=== PATIENT | male | born 1990 | race African-American/Black ===

== ENCOUNTER 2017-02-10 02:10 | Emergency (ER) | payer OTHER ==
[~2017-02-10] VITALS: Ht 167.6 cm; Wt 81.5 kg
[2017-02-10] MEDS ORDERED: AZITHROMYCIN 500 MG TABLET PO ONE (03:45)
[2017-02-10] MEDS ORDERED: LIDOCAINE HCL 1% 20ML VIAL (Pyxis) INJ MC ONE (03:45)
[2017-02-10] MEDS ORDERED: CEFTRIAXONE SODIUM 250 MG/VIAL IM ONE (03:45)
[2017-02-10 04:22] LABS: CLARITY URINE CLEAR (CLEAR); COLOR URINE YELLOW (YELLOW); GLUCOSE URINE NEGATIVE (NEGATIVE); KETONES URINE NEGATIVE (NEGATIVE); LEUKOCYTE ESTERASE URINE NEGATIVE (NEGATIVE); NITRITE URINE NEGATIVE (NEGATIVE); OCCULT BLOOD URINE TRACE (NEGATIVE); PROTEIN URINE NEGATIVE (NEGATIVE); SPECIFIC GRAVITY URINE 1.008 (1.005-1.030); UROBILINOGEN URINE 0.2 E.U./dL (0.2-1.0)
[2017-02-10 04:40] VITALS: BP 119/78
== END 2017-02-10 04:40 | disposition home or self-care (01) ==
LOC: ER 02:10
DX: Z20.2 Contact with and (suspected) exposure to infections with a predominantly sexual mode of transmission (principal)
CPT/HCPCS: 81001; 96372; 99283; J0696; J3490; Z7610

== ENCOUNTER 2017-04-27 09:54 | Emergency (ER) | payer OTHER ==
[~2017-04-27] VITALS: Ht 167.6 cm; Wt 82.0 kg
[2017-04-27 10:18] VITALS: BP 132/88
== END 2017-04-27 13:34 | disposition left against medical advice (07) ==
LOC: ER 11:30
DX: Z53.21 Procedure and treatment not carried out due to patient leaving prior to being seen by health care provider (principal)

== ENCOUNTER 2017-08-27 02:13 | Emergency (ER) | payer OTHER ==
[~2017-08-27] VITALS: Ht 167.6 cm; Wt 89.0 kg
[2017-08-27] MEDS ORDERED: FLUORESCEIN SODIUM 1MG/STRIP OP ONE (03:15)
[2017-08-27] MEDS ORDERED: TETRACAINE 0.5% OPHTH DROPS 4ML OP ONE (03:15)
[2017-08-27 04:15] VITALS: BP 128/79
== END 2017-08-27 04:25 | disposition home or self-care (01) ==
LOC: ER 02:13
DX: H10.89 Other conjunctivitis (principal); J45.909 Unspecified asthma, uncomplicated; F12.10 Cannabis abuse, uncomplicated
CPT/HCPCS: 99283

== ENCOUNTER 2021-11-02 18:21 | Emergency (ER) | payer OTHER ==
[~2021-11-02] VITALS: Ht 167.6 cm; Wt 91.0 kg
[2021-11-02 18:31] VITALS: BP 138/84
[2021-11-02] MEDS ORDERED: ABAC1TAB14 PO (18:36)
[2021-11-02 22:41] LABS: BASOPHILS % 0.2 % (0.0-2.0); EOSINOPHILS % 1.3 % (0.0-5.0); HEMATOCRIT. 43.9 % (42.0-52.0); HEMOGLOBIN. 14.5 g/dL (14.0-18.0); LYMPHOCYTES % 24.8 % (20.0-50.0); MEAN CORPUSCULAR HEMOGLOBIN 27.9 pg (28.0-32.0); MEAN CORPUSCULAR VOLUME 84.8 fL (80.0-94.0); MEAN PLATELET VOLUME 8.5 fl (7.4-10.4); MONOCYTES % 14.3 % (2.0-8.0); NEUTROPHILS % 59.4 % (40.0-76.0); PLATELET 145 x1000/uL (130-400); RED BLOOD CELL COUNT 5.17 mill/uL (4.7-6.1); RED CELL DISTRIBUTION WIDTH 14.5 % (11.6-14.6)
[2021-11-02 22:48] LABS: CHLORIDE 104 mEq/L (98-107)
== END 2021-11-03 04:00 | disposition left against medical advice (07) ==
LOC: ER 18:21
DX: R51.9 Headache, unspecified (principal); R50.9 Fever, unspecified; R05.9 Cough, unspecified; J45.909 Unspecified asthma, uncomplicated; Z20.822 Contact with and (suspected) exposure to COVID-19
CPT/HCPCS: 36415; 71045; 80053; 85025; 87426; 99284; C9803

== ENCOUNTER 2021-12-31 09:38 | Emergency (ER) | payer OTHER ==
[~2021-12-31] VITALS: Ht 170.2 cm; Wt 87.0 kg
[~2021-12-31 09:38] MED LIST: ABAC1TAB14 PO
[2021-12-31] MEDS ORDERED: ACETAMINOPHEN 325MG TABLET PO STA (10:23)
[2021-12-31] MEDS ORDERED: SODIUM CHLORIDE 0.9% 1,000 ML IV ONE (10:30)
[2021-12-31] MEDS ORDERED: TETANUS, DIPHTHERIA, PERTUSSIS VAC/PF 0.5ML (>10YR OLD) IM ONE ×2 (10:30→12:30)
[2021-12-31] MEDS ORDERED: LIDOCAINE HCL/PF 1% 10 MG/ML 5ML VIAL INFIL ONE (10:30)
[2021-12-31 10:47] LABS: BASOPHILS % 0.2 % (0.0-2.0); EOSINOPHILS % 0.5 % (0.0-5.0); HEMATOCRIT. 43.7 % (42.0-52.0); HEMOGLOBIN. 14.4 g/dL (14.0-18.0); LYMPHOCYTES % 33.9 % (20.0-50.0); MEAN CORPUSCULAR HEMOGLOBIN 27.8 pg (28.0-32.0); MEAN CORPUSCULAR VOLUME 84.1 fL (80.0-94.0); MEAN PLATELET VOLUME 8.3 fl (7.4-10.4); MONOCYTES % 8.4 % (2.0-8.0); PLATELET 185 x1000/uL (130-400); RED BLOOD CELL COUNT 5.19 mill/uL (4.7-6.1); RED CELL DISTRIBUTION WIDTH 14.1 % (11.6-14.6)
[2021-12-31 11:02] LABS: CHLORIDE 105 mEq/L (98-107)
[2021-12-31] MEDS ORDERED: ACET-2708 MT (12:18)
[2021-12-31 12:30] VITALS: BP 141/92
== END 2021-12-31 13:15 | disposition home or self-care (01) ==
LOC: ER 09:38
DX: R55 Syncope and collapse (principal); S01.01XA Laceration without foreign body of scalp, initial encounter; F12.10 Cannabis abuse, uncomplicated; J45.909 Unspecified asthma, uncomplicated; X58.XXXA Exposure to other specified factors, initial encounter; Y93.89 Activity, other specified; Y92.89 Other specified places as the place of occurrence of the external cause; Y99.8 Other external cause status
CPT/HCPCS: 12002; 36415; 70450; 71045; 72125; 80053; 84484; 85025; 90471; 90715; 96360; 99285; J3490; J7030; Z7610

== ENCOUNTER 2024-06-03 13:47 | Emergency (ER) | payer OTHER ==
[~2024-06-03] VITALS: Ht 167.6 cm; Wt 90.7 kg
[~2024-06-03 13:47] MED LIST changes: +ACET-2708 MT
[2024-06-03 13:48] VITALS: O2SAT 99
[2024-06-03 13:49] VITALS: TEMP 36.7; O2SAT 100
[2024-06-03] MEDS: SODIUM CHLORIDE 0.9% 1,000 ML IV ONE (16:14)
[2024-06-03 16:15] VITALS: BP 150/102; PULSE 79; RESP 16
[2024-06-03] MEDS: DIPHENHYDRAMINE 12.5MG/5ML UDC PO ONE (16:15)
[2024-06-03] MEDS: METOCLOPRAMIDE HCL 10MG/2ML VIAL IV ONE (16:15)
[2024-06-03] MEDS: KETOROLAC 30MG/ML VIAL IV ONE (16:15)
[2024-06-03 17:13] LABS: HEMATOCRIT. 41.9 % (42.0-52.0); HEMOGLOBIN. 13.8 g/dL (14.0-18.0); MEAN CORPUSCULAR HEMOGLOBIN 28.3 pg (28.0-32.0); MEAN CORPUSCULAR HGB CONC 33.1 g/dL (31.0-37.0); MEAN CORPUSCULAR VOLUME 85.5 fL (80.0-94.0); PLATELET 133 x1000/uL (130-400); RED CELL DISTRIBUTION WIDTH 13.5 % (11.6-14.6); WHITE BLOOD COUNT 7.7 x1000/uL (4.5-11.0)
[2024-06-03 17:15] LABS: CHLORIDE 107 mEq/L (98-107); SODIUM 138 mEq/L (136-145)
[2024-06-03 17:16] LABS: CARBON DIOXIDE 24 mEq/L (21-32); DIFFERENTIAL COMMENT 1
[2024-06-03 17:17] LABS: CALCIUM 9.1 mg/dL (8.7-10.4)
[2024-06-03 17:21] LABS: CREATININE 1.2 mg/dL (0.6-1.3)
[2024-06-03 17:22] LABS: GLUCOSE 89 mg/dL (70-105); UREA NITROGEN BLOOD 9 mg/dL (9-23)
[2024-06-03] MEDS ORDERED: ASPI-740 PO (17:24)
[2024-06-03 18:36] LABS: ATYPICAL LYMPHOCYTES 4; PLATELET ESTIMATE NORMAL
== END 2024-06-03 17:49 | disposition home or self-care (01) ==
LOC: ER 13:47
DX: G43.909 Migraine, unspecified, not intractable, without status migrainosus (principal); F12.90 Cannabis use, unspecified, uncomplicated; J45.909 Unspecified asthma, uncomplicated; Z79.82 Long term (current) use of aspirin; Z79.899 Other long term (current) drug therapy
CPT/HCPCS: 80048; 85025; 36415; 96374; 96375; 99284; Q0163; J1885; J2765; J7030; Z7610 ×2; A4606